=== PATIENT | male | born 1985 | race Caucasian/White ===

== ENCOUNTER 2020-04-11 16:25 | Inpatient (IN) | payer OTHER ==
[~2020-04-11] VITALS: Ht 188 cm; Wt 64.5 kg
[2020-04-11 16:50] LABS: COVID AG,FIA SOURCE NASOPHARYNGEAL
[2020-04-11 17:21] LABS: BASOPHILS % (AUTO) 0.6 % (0.0-2.0); HEMATOCRIT 43.3 % (41-53); HEMOGLOBIN 14.8 g/dL (13.5-17.5); LYMPHOCYTES # (AUTO) 2.5 K/uL (1.0-4.8); LYMPHOCYTES % (AUTO) 31.4 % (22.0-44.0); MEAN CORPUSCULAR HEMOGLOBIN 32.6 pg (26.0-34.0); MEAN CORPUSCULAR HGB CONC 34.2 G/dL (31.0-37.0); MEAN CORPUSCULAR VOLUME 95 fL (80-100); MONOCYTES # (AUTO) 0.7 K/uL (0.1-1.0); MONOCYTES % (AUTO) 8.5 % (2.0-9.0); NEUTROPHILS # (AUTO) 4.6 K/uL (1.8-7.7); NEUTROPHILS % (AUTO) 57.5 % (40.0-70.0); PLATELET COUNT (AUTO) 333 K/uL (150-450); RED BLOOD CELL COUNT(AUTO) 4.54 MIL/uL (4.50-5.90)
[2020-04-11 17:23] LABS: ANION GAP 4 mmol/L (8-16); CALCIUM, TOTAL 8.1 mg/dL (8.8-10.5); CARBON DIOXIDE 28 mmol/L (22-29); CHLORIDE 106 mmol/L (98-107); GLOMERULAR FILTR. RATE CALC > 60 mL/min (>60); GLUCOSE,RANDOM 92 mg/dL (70-110); POTASSIUM 4.4 mmol/L (3.5-5.1); SODIUM SERUM 138 mmol/L (136-145); UREA NITROGEN, BLOOD 12 mg/dL (7-18)
[2020-04-11 17:29] LABS: ALANINE AMINOTRANSFERASE 21 U/L (12-78); ALBUMIN 3.7 g/dL (3.4-5.0); ALKALINE PHOSPHATASE 67 U/L (46-116); ASPARTATE AMINOTRANSFERASE 12 U/L (15-37); BILIRUBIN,TOTAL 0.6 mg/dL (0.1-1.0)
[2020-04-11] MEDS ORDERED: ONDANSETRON HCL 4 MG/2 ML VIAL IVP PRN (17:45)
[2020-04-11] MEDS ORDERED: ACETAMINOPHEN 325 MG TABLET PO PRN (17:45)
[2020-04-11] MEDS ORDERED: 0.9% SODIUM CHLORIDE 10 ML SYRINGE IVP PRN (17:45)
[2020-04-11 19:36] LABS: AMPHET/METH SCREEN,URINE POSITIVE (NEGATIVE); BARBITURATE SCREEN, URINE NEGATIVE (NEGATIVE); BENZODIAZEPINES SCREEN,URINE NEGATIVE (NEGATIVE); CANNABINOID SCREEN,URINE NEGATIVE (NEGATIVE); COCAINE SCREEN,URINE NEGATIVE (NEGATIVE); METHADONE SCREEN, URINE NEGATIVE (NEGATIVE); OPIATE SCREEN,URINE POSITIVE (NEGATIVE)
[2020-04-11 19:39] LABS: PHENCYCLIDINE SCREEN,URINE NEGATIVE (NEGATIVE)
[2020-04-11 20:10] VITALS: BP 96/79
[2020-04-11] MEDS ORDERED: PROMETHAZINE HCL 25 MG TABLET PO PRN (21:45)
[2020-04-11] MEDS ORDERED: TraZODone HCL 50 MG TABLET PO PRN (21:45)
[2020-04-11] MEDS ORDERED: HydrOXYzine PAMOATE 50 MG CAPSULE PO PRN ×2 (21:45)
[2020-04-11] MEDS ORDERED: IBUPROFEN 600 MG TABLET PO PRN (21:45)
[2020-04-11] MEDS ORDERED: DICYCLOMINE HCL 10 MG CAPSULE PO PRN (21:45)
[2020-04-11] MEDS ORDERED: LOPERAMIDE HCL 2 MG/15 ML SUSPENSION UDCUP PO PRN (21:45)
[2020-04-11] MEDS ORDERED: CloNIDine HCL 0.1 MG TABLET PO PRN (21:45)
[2020-04-11] MEDS ORDERED: MAG HYDROX/AL HYDROX/SIMETH ES 30 ML SUSPENSION UDCUP PO PRN ×2 (21:45)
[2020-04-11] MEDS: CloNIDine HCL 0.1 MG TABLET PO SCH (22:00)
[2020-04-11] MEDS: SODIUM CHLORIDE 0.45% 1,000 ML IV SCH (23:17)
[2020-04-11 23:41] VITALS: BP 90/48
[2020-04-11 23:49] VITALS: BP 100/57
[2020-04-12] VITALS (9 sets, daily range): BP systolic 97–131; BP diastolic 52–86
[2020-04-12] MEDS ORDERED: INFLUENZA VIRUS VACCINE QVS 2020-21 (6MO+)/PF 60 MCG/0.5 ML SYRINGE IM ONE (05:00)
[2020-04-12] MEDS: CloNIDine HCL 0.1 MG TABLET PO SCH ×5 (05:35→21:58)
[2020-04-12] MEDS: BACLOFEN 10 MG TABLET PO PRN (10:57)
[2020-04-12] MEDS: SODIUM CHLORIDE 0.45% 1,000 ML IV SCH ×2 (10:59→23:56)
[2020-04-13] MEDS: CloNIDine HCL 0.1 MG TABLET PO SCH ×4 (05:24→22:21)
[2020-04-13] MEDS: ACETAMINOPHEN 325 MG TABLET PO PRN (05:24)
[2020-04-13 05:30] VITALS: BP 115/76
[2020-04-13] MEDS: BACLOFEN 10 MG TABLET PO PRN (08:05)
[2020-04-13] MEDS: MULTIVITAMINS WITH MINERALS, THERAPEUTIC TABLET PO SCH (08:05)
[2020-04-13] MEDS: IBUPROFEN 600 MG TABLET PO PRN ×2 (08:06→12:44)
[2020-04-13 08:23] VITALS: BP 112/65
[2020-04-13 11:40] VITALS: BP 112/65
[2020-04-13] MEDS: LORazepam 1 MG TABLET PO PRN (12:45)
[2020-04-13] MEDS: SODIUM CHLORIDE 0.45% 1,000 ML IV SCH (12:50)
[2020-04-13 20:29] VITALS: BP 107/62
[2020-04-14] MEDS: IBUPROFEN 600 MG TABLET PO PRN ×2 (02:20→08:51)
[2020-04-14] MEDS: LORazepam 1 MG TABLET PO PRN (02:20)
[2020-04-14] MEDS: BACLOFEN 10 MG TABLET PO PRN (02:51)
[2020-04-14] MEDS: ACETAMINOPHEN 325 MG TABLET PO PRN (02:51)
[2020-04-14 05:11] VITALS: BP 117/67
[2020-04-14] MEDS: CloNIDine HCL 0.1 MG TABLET PO SCH ×4 (06:43→22:33)
[2020-04-14 08:12] VITALS: BP 117/72
[2020-04-14] MEDS: MULTIVITAMINS WITH MINERALS, THERAPEUTIC TABLET PO SCH (08:41)
[2020-04-14 15:39] VITALS: BP 93/52
[2020-04-14 20:03] VITALS: BP 110/57
== END 2020-04-15 05:57 | DRG 897 ==
LOC: EMS 16:25 → 6S 19:47
PROVIDERS: ADMIT Hospitalist; ATTEND Hospitalist
DX: F11.10 Opioid abuse, uncomplicated (principal); F15.10 Other stimulant abuse, uncomplicated; F17.210 Nicotine dependence, cigarettes, uncomplicated; Z20.828 Contact with and (suspected) exposure to other viral communicable diseases; Z28.82 Immunization not carried out because of caregiver refusal
CPT/HCPCS: 87426